=== PATIENT | male | born 1965 | race Caucasian/White ===

== ENCOUNTER 2023-12-30 13:34 | Emergency (ER) | payer MEDICAID ==
[~2023-12-30] VITALS: Ht 147.3 cm; Wt 54.0 kg
[2023-12-30 13:39] VITALS: O2SAT 99
[2023-12-30 16:54] VITALS: TEMP 98.5
[2023-12-30] MEDS: ACETAMINOPHEN 325MG TABLET PO ONE (16:54)
[2023-12-30 17:29] VITALS: BP 157/92; PULSE 67; RESP 19
== END 2023-12-30 17:31 | disposition home or self-care (01) ==
LOC: ER 13:34
DX: I10 Essential (primary) hypertension (principal)
CPT/HCPCS: 99282